=== PATIENT | male | born 1985 | race Caucasian/White ===

== ENCOUNTER 2018-03-26 22:55 | Emergency (ER) | payer OTHER ==
[~2018-03-26] VITALS: Ht 177.8 cm; Wt 95.2 kg
[2018-03-26] MEDS ORDERED: SERTRALINE HCL100 MG PO (23:08)
[2018-03-26] MEDS ORDERED: LISINOPRIL10 MG PO (23:09)
[2018-03-26] MEDS ORDERED: NAPROXEN375 MG PO (23:09)
[2018-03-26] MEDS ORDERED: PHARBEDRYL50 MG PO (23:09)
[2018-03-26] MEDS ORDERED: ARTHRITIS PAI42.5 GM TOP (23:10)
[2018-03-26] MEDS ORDERED: SIMVASTATIN5 MG PO (23:10)
== END 2018-03-27 01:02 | disposition home or self-care (01) ==
LOC: ED 22:55
PROC: 0RSLXZZ Reposition Right Elbow Joint, External Approach (ICD-10-PCS; principal; 2018-03-26)
DX: S53.124A Posterior dislocation of right ulnohumeral joint, initial encounter (principal); G56.31 Lesion of radial nerve, right upper limb; G56.21 Lesion of ulnar nerve, right upper limb; W22.8XXA Striking against or struck by other objects, initial encounter; Z87.891 Personal history of nicotine dependence; Z88.5 Allergy status to narcotic agent; Z88.8 Allergy status to other drugs, medicaments and biological substances; Z79.899 Other long term (current) drug therapy
CPT/HCPCS: 24600; 73060; 73080; 73090; 96374; 96375; 99152; 99284; J1170; J2405; J2704